=== PATIENT | female | born 1995 | race Caucasian/White ===

== ENCOUNTER 2017-12-21 13:10 | Emergency (ER) | payer BC ==
--- NOTE | 2017-12-21 13:58 | ER ---
Nurse's Notes [facility] Name: Guerita Lucero Age: 22 yrs Sex: Female : 1995 Arrival Date: 12/21/2017 Time: 13:13 Bed 20 Private MD: Diagnosis: Otitis media, unspecified, bilateral;Acute upper respiratory infection, unspecified;Tobacco abuse counseling;Tobacco use Presentation: 12/21 13:23 Presenting complaint: Patient states: cough cold congestion for the past 4 days, now ch having pin in R ear and starting to get pain in L ear. states she was taking Tylenol for it. denies fever. Transition of care: patient was not received from another setting of care. Onset of symptoms was December 16, 2017. Risk Assessment: Do you want to hurt yourself or someone else? Patient reports no desire to harm self or others. Initial Sepsis Screen: Does the patient meet any 2 criteria? No. Patient's initial sepsis screen is negative. Does the patient have a suspected source of infection? No. Patient's initial sepsis screen is negative. Care prior to arrival: None. 13:23 Method Of Arrival: Ambulatory 13:23 Acuity: LUIS 5 Triage Assessment: 13:25 General: Appears in no apparent distress. comfortable, Behavior is calm, cooperative, ch appropriate for age. Pain: Complains of pain in right ear Pain currently is 8 out of 10 on a pain scale. Pain began gradually. EENT: Nares with drainage noted Reports nasal congestion nasal discharge pain in left ear and right ear. Neuro: No deficits noted. Respiratory: Reports cough that is Airway is patent Respiratory effort is even, unlabored. Derm: Skin is pink, warm \T\ dry. 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 - Social history:: Smoking status: Patient/guardian denies using tobacco. - Ebola Screening: : Patient negative for fever greater than or equal to 101.5 degrees Fahrenheit, and additional compatible Ebola Virus Disease symptoms Patient denies exposure to infectious person Patient denies travel to an Ebola-affected area in the days before illness onset No symptoms or risks identified at this time. Screenin:27 Abuse screen: Denies threats or abuse. Denies injuries from another. Nutritional screening: No deficits noted. Tuberculosis screening: No symptoms or risk factors identified. Fall Risk None identified. Assessment: 13:27 Reassessment: Patient appears in no apparent distress at this time. Patient and/or family updated on plan of care and expected duration. Pain level reassessed. Patient is alert, oriented x 3, equal unlabored respirations, skin warm/dry/pink. 14:11 Reassessment: Patient appears in no apparent distress at this time. No changes from previously documented assessment. Patient and/or family updated on plan of care and expected duration. Pain level reassessed. Patient is alert, oriented x 3, equal unlabored respirations, skin warm/dry/pink. Vital Signs: 13:25 BP 126 / 71; Pulse 79; Resp 14; Temp 98.9; Pulse Ox 99% on R/A; Weight 70.31 kg; Height 5 ft. 3 in. (160.02 cm); Pain 8/10; 14:11 BP 121 / 62; Pulse 64; Resp 18; Temp 98.3; Pulse Ox 99% on R/A; Pain 7/10; ch 13:25 Body Mass Index 27.46 (70.31 kg, 160.02 cm) ED Course: 13:13 Patient arrived in ED. [id number] 13:19 Yosvany Gotti MD is Attending Physician. [facility] 13:21 Lois Sanchez, ANAT is Primary Nurse. 13:24 Triage completed. 13:25 Arm band placed on left wrist. Patient placed in an exam room, on a stretcher. ch 13:27 Patient has correct armband on for positive identification. Bed in low position. Call light in reach. 13:27 No provider procedures requiring assistance completed. Patient did not have IV access during this emergency room visit. Administered Medications: 14:00 Drug: Rocephin (cefTRIAXone) 1 grams Route: IM; Site: left gluteus; ch 14:11 Follow up: Response: No adverse reaction; Marked relief of symptoms ch 14:10 Drug: predniSONE 60 mg Route: PO; ch 14:11 Follow up: Response: No adverse reaction; Marked relief of symptoms ch 14:10 Drug: Augmentin 875 mg Route: PO; 14:11 Follow up: Response: No adverse reaction; Marked relief of symptoms Outcome: 13:57 Discharge ordered by . brittany 14:11 Discharged to home ambulatory. 14:11 Condition: stable 14:11 Discharge instructions given to patient, Instructed on discharge instructions, follow up and referral plans. medication usage, Demonstrated understanding of instructions, follow-up care, medications, Prescriptions given X 4. 14:18 Patient left the ED. Signatures: Lois Sanchez RN RN Yosvany Contreras MD MD cha Garcia, Zaira rg4
--- NOTE | 2017-12-21 13:58 | EDPHYS ---
Physician Documentation [facility] Name: Guerita Lucero Age: 22 yrs Sex: Female : 1995 Arrival Date: 12/21/2017 Time: 13:13 Bed 20 Private MD: ED Physician Yosvany Gotti HPI: 12/21 13:53 This 22 yrs old Female presents to ER via Ambulatory with complaints of brittany Cough, Ear Pain, Headache. 13:53 The patient or guardian reports airway noise, cough, that is constant. Onset: The brittany symptoms/episode began/occurred 3 day(s) ago. Severity of symptoms: At their worst the symptoms were mild, in the emergency department the symptoms are unchanged. Modifying factors: The symptoms are alleviated by nothing, the symptoms are aggravated by heat. 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 - Social history:: Smoking status: Patient/guardian denies using tobacco. - Ebola Screening: : Patient negative for fever greater than or equal to 101.5 degrees Fahrenheit, and additional compatible Ebola Virus Disease symptoms Patient denies exposure to infectious person Patient denies travel to an Ebola-affected area in the 21 days before illness onset No symptoms or risks identified at this time. ROS: 13:53 Constitutional: Negative for fever, chills, and weight loss, Eyes: Negative for injury, brittany pain, redness, and discharge, Neck: Negative for injury, pain, and swelling, Cardiovascular: Negative for chest pain, palpitations, and edema, Abdomen/GI: Negative for abdominal pain, nausea, vomiting, diarrhea, and constipation, Back: Negative for injury and pain, : Negative for injury, bleeding, discharge, and swelling, MS/Extremity: Negative for injury and deformity, Skin: Negative for injury, rash, and discoloration, Neuro: Negative for headache, weakness, numbness, tingling, and seizure, Psych: Negative for depression, anxiety, suicide ideation, homicidal ideation, and hallucinations, Allergy/Immunology: Negative for hives, rash, and allergies, Endocrine: Negative for neck swelling, polydipsia, polyuria, polyphagia, and marked weight changes, Hematologic/Lymphatic: Negative for swollen nodes, abnormal bleeding, and unusual bruising. 13:53 ENT: Positive for ear pain. 13:53 Respiratory: Positive for cough. Exam: 13:53 Constitutional: This is a well developed, well nourished patient who is awake, alert, brittany and in no acute distress. Head/Face: Normocephalic, atraumatic. Eyes: Pupils equal round and reactive to light, extra-ocular motions intact. Lids and lashes normal. Conjunctiva and sclera are non-icteric and not injected. Cornea within normal limits. Periorbital areas with no swelling, redness, or edema. Neck: Trachea midline, no thyromegaly or masses palpated, and no cervical lymphadenopathy. Supple, full range of motion without nuchal rigidity, or vertebral point tenderness. No Meningismus. Chest/axilla: Normal chest wall appearance and motion. Nontender with no deformity. No lesions are appreciated. Cardiovascular: Regular rate and rhythm with a normal S1 and S2. No gallops, murmurs, or rubs. Normal PMI, no JVD. No pulse deficits. Abdomen/GI: Soft, non-tender, with normal bowel sounds. No distension or tympany. No guarding or rebound. No evidence of tenderness throughout. Back: No spinal tenderness. No costovertebral tenderness. Full range of motion. Skin: Warm, dry with normal turgor. Normal color with no rashes, no lesions, and no evidence of cellulitis. MS/ Extremity: Pulses equal, no cyanosis. Neurovascular intact. Full, normal range of motion. Neuro: Awake and alert, GCS 15, oriented to person, place, time, and situation. Cranial nerves II-XII grossly intact. Motor strength 5/5 in all extremities. Sensory grossly intact. Cerebellar exam normal. Normal gait. Psych: Awake, alert, with orientation to person, place and time. Behavior, mood, and affect are within normal limits. 13:53 ENT: TM's: dullness, erythema, that is moderate, on the right, Posterior pharynx: Airway: normal, no evidence of obstruction, Tonsils: are normal in appearance, Uvula: normal, swelling, is not appreciated. 13:53 Neck: Exam negative for 13:53 Respiratory: the patient does not display signs of respiratory distress, Respirations: normal, Breath sounds: decreased breath sounds, rhonchi, that are mild, are scattered, Respiratory rate: 14 Vital Signs: 13:25 BP 126 / 71; Pulse 79; Resp 14; Temp 98.9; Pulse Ox 99% on R/A; Weight 70.31 kg; Height ch 5 ft. 3 in. (160.02 cm); Pain 8/10; 14:11 BP 121 / 62; Pulse 64; Resp 18; Temp 98.3; Pulse Ox 99% on R/A; Pain 7/10; ch 13:25 Body Mass Index 27.46 (70.31 kg, 160.02 cm) ch MDM: 13:19 Patient medically screened. brittany Administered Medications: 14:00 Drug: Rocephin (cefTRIAXone) 1 grams Route: IM; Site: left gluteus; ch 14:11 Follow up: Response: No adverse reaction; Marked relief of symptoms ch 14:10 Drug: predniSONE 60 mg Route: PO; ch 14:11 Follow up: Response: No adverse reaction; Marked relief of symptoms ch 14:10 Drug: Augmentin 875 mg Route: PO; ch 14:11 Follow up: Response: No adverse reaction; Marked relief of symptoms Disposition: 12/21/17 13:57 Discharged to Home. Impression: Otitis media, unspecified, bilateral, Acute upper respiratory infection, unspecified, Tobacco abuse counseling, Tobacco use. - Condition is Stable. - Discharge Instructions: Otitis Media, Adult, Steps to Quit Smoking, Smoking Hazards, Upper Respiratory Infection, Adult, Cool Mist Vaporizer, Cough, Adult. - Prescriptions for Cheratussin AC 10- 100 mg/5 mL Oral liquid - take 10 milliliter by ORAL route every 4 hours; 160 milliliter. Augmentin 875- 125 mg Oral Tablet - take 1 tablet by ORAL route every 12 hours for 10 days; 20 tablet. Kiah- D 12 Hour 60-120 mg Oral Tablet Sustained Release 12 hr - take 1 tablet by ORAL route every 12 hours As needed; 20 tablet. Medrol (Jeffrey) 4 mg Oral Tablets, Dose Pack - take 1 tablet by ORAL route as directed - follow package instructions; 1 packet. - Medication Reconciliation Form, Thank You Letter, Antibiotic Education, Prescription Opioid Use form. - Follow up: Private Physician; When: 2 - 3 days; Reason: Recheck today's complaints, Continuance of care, Re-evaluation by your physician. - Problem is new. - Symptoms have improved. Signatures: Lois Sanchez RN RN ch Anderson, Corey, MD MD cha Corrections: (The following items were deleted from the chart) 14:18 13:57 12/21/2017 13:57 Discharged to Home. Impression: Otitis media, unspecified, ch bilateral; Acute upper respiratory infection, unspecified; Tobacco abuse counseling; Tobacco use. Condition is Stable. Forms are Medication Reconciliation Form, Thank You Letter, Antibiotic Education, Prescription Opioid Use. Follow up: Private Physician; When: 2 - 3 days; Reason: Recheck today's complaints, Continuance of care, Re-evaluation by your physician. Problem is new. Symptoms have improved. brittany
[2017-12-21] MEDS ORDERED: predniSONE 20 MG TAB ONE (14:04)
[2017-12-21] MEDS ORDERED: LIDOCAINE 1% MPF 2 ML AMPULE ONE (14:04)
[2017-12-21] MEDS ORDERED: CEFTRIAXONE 1000 MG/VIAL ONE (14:04)
[2017-12-21] MEDS ORDERED: AMOX/K CLAV 875 MG TAB ONE (14:04)
== END 2017-12-21 14:18 | disposition home or self-care (01) ==
LOC: ER 13:10
DX: J06.9 Acute upper respiratory infection, unspecified (principal); H66.93 Otitis media, unspecified, bilateral; Z72.0 Tobacco use; Z71.6 Tobacco abuse counseling
CPT/HCPCS: 96372; 99283; J2001; J7512